=== PATIENT | male | born 1980 | race Caucasian/White ===

== ENCOUNTER 2018-04-18 00:03 | Emergency (ER) | payer OTHER, MEDICAID ==
[2018-04-18 00:03] VITALS: BMI 33.9
[2018-04-18 00:27] VITALS: RESP 18; TEMP 98.7
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
[2018-04-18 01:52] VITALS: BP 135/74; PULSE 84; O2SAT 99
== END 2018-04-18 01:45 | disposition home or self-care (01) ==
LOC: ED 00:03
DX: R59.1 Generalized enlarged lymph nodes (principal); L73.9 Follicular disorder, unspecified